=== PATIENT | female | born 1985 | race Caucasian/White ===

== ENCOUNTER 2017-10-06 10:18 | Inpatient (IN) | payer OTHER ==
[~2017-10-06] VITALS: Ht 160 cm; Wt 98.0 kg
[2017-10-06] MEDS ORDERED: PRENATAL TABLE1 EAC2 PO (11:16)
[2017-10-06] MEDS ORDERED: CLARITIN10 M1 PO (11:17)
--- NOTE | 2017-10-06 11:31 | History & Physical Pre-Op ---
General Information and HPI MD Statement: I have seen and personally examined SNOW PINZON and documented this H&P. The patient is a 31 year old F who presented with a patient stated chief complaint of oligohydramnios. Patient's had adequate care she denies rupture of membranes she denies contractions headaches edema visual changes. [] . History of Present Illness: 31-year-old 1 para 0 at 40-6/7 weeks gestation presents with oligohydramnios for induction of labor. Patient was 1 cm 90% in the office vertex -1 for serial induction with Pitocin and misoprostol patient is 9 and discussed risks and benefits of induction with oligohydramnios Allergies/Medications Allergies: Coded Allergies: Penicillins (HIVES 10/06/17) erythromycin base (UPSET STOMACH VOMITING 10/06/17) Home Med list Loratadine (Claritin) 10 MG TABLET 1 TAB PO DAILY ALLERGIES (Reported) Vit No.130/Iron/FA ( Tablet) 27 MG IRON-800 MCG TABLET 1 TAB PO DAILY (Reported) Past History Surgical History Pertinent Surgical History: none Review of Systems Review of Systems: -13 point review of systems Exam & Diagnostic Data Last 24 Hrs of Vital Signs/I&O Thin pleasant white female with glasses HEENT anicteric Adrian lungs clear Heart S1 and S2 Abdomen soft estimated weight 3900 g Pelvic 1 cm 90% rechecks -1 intact Extremities +1 edema negative Homans +1 reflexes Assessment/Plan Assessment/Plan: Assessment is term oligohydramnios plan serial induction with misoprostol and Pitocin IV fluids bed rest continuous monitoring patient may have epidural Stadol As Ranked By This Provider Problem List: 1.
--- NOTE | 2017-10-06 11:56 | PN- Obstetrical ---
Subjective Subjective: no compliants Objective Last 24 Hrs of Vital Signs/I&O as per chart Physical Exam: PE THIN WFIN NAD ABD SOFT EFW 3900 PELVIC 1CM 90 Obstetric Exam Dilation (cm): 1 Effacement (%): 90 Station: 0 Membranes: intact Fluid: unknown Multiple Gestation? No Contractions: IRREGULAR NOT FELT BY PT Assessment/Plan Assessment/Plan ASSESSOLIGO PLAN MISO NUMBER1 OBSEVEFOR
[2017-10-06 12:25] LABS: ABSOLUTE BASOPHIL COUNT 0.1 /CUMM (0.0-0.2); ABSOLUTE EOSINOPHIL COUNT 0.1 /CUMM (0.0-0.7); ABSOLUTE GRANULOCYTE CT 13.9 /CUMM (1.4-6.5); ABSOLUTE LYMPH COUNT 2.4 /CUMM (1.2-3.4); ABSOLUTE MONOCYTE COUNT 1.1 /CUMM (0.10-0.60); BASOPHIL % 0.4 % (0.0-2.0); EOSINOPHIL % 0.7 % (0-5); GRANULOCYTE % 79.1 % (42.2-75.2); HEMATOCRIT 37.7 % (37-47); MEAN CORPUSCULAR HGB 29.8 PG (27.0-31.0); MEAN CORPUSCULAR HGB CONC 33.3 G/DL (33.0-37.0); MEAN CORPUSCULAR VOLUME 89.3 FL (81.0-99.0); MEAN PLATELET VOLUME 8.5 FL (7.4-10.4); PLATELET COUNT 375 /CUMM (130-400); RBC DISTRIBUTION WIDTH 14.1 % (11.5-14.5); RED BLOOD CELL CT 4.21 /CUMM (4.20-5.40); WHITE BLOOD CELL COUNT 17.6 /CUMM (4.8-10.8)
--- NOTE | 2017-10-06 19:07 | PN- OBGYN ---
Surgical Brief Attending Note Brief Attending Note: I assumed care of this patient at 1700. Dr Cleaning signed her out to me. Patient at 40w6d with complicated by oligohydramnios at term. Patient s/p one misoprostol for cervical ripening. Patient reported rupture of membranes. Amnisure positive. Exam 130/80 NAD Alert and oriented x 3 Abdomen soft EFW clinically 3600 grams Gynecoid pelvis /-1/mid/soft. [place] q 2 minutes Catagory 1 tracing GBBS negative 09/11/17 PCN allergy. A/p Para 0 undergoing induction of labor for oligohydramnios now with PROM and GBBS negative. As Para 0 observe for findings of preeclampsia. Discussed same with patient. No need for intervention at present. Labor analgesia and epidural discussed. She will think about same. Nursing reviewed same as well. Induction. No need for additional misoprostol at present and contraction pattern is adequate in my opinion. Once pattern decreases to less than every 5 than would start oxytocin. I reviewed same. GBBS negative and clear. [place] now is 6.
--- NOTE | 2017-10-07 12:00 | PN- Obstetrical ---
Subjective Subjective: No complaints likes peanut ball Objective Last 24 Hrs of Vital Signs/I&O Intake & Output 10/07 1600 10/07 0800 10/07 0000 Intake Total Output Total Balance Patient 216 lb Weight Physical Exam: Well-built white female HEENT anicteric Abdomen soft estimated weight 3900 g Obstetric Exam Dilation (cm): 5 Effacement (%): 90 Station: 0 Membranes: SROM Fluid: bloody show Multiple Gestation? No Contractions: Every 2-3 on external monitor Assessment/Plan Assessment/Plan Assessment is term question of in adequate contractions PLAN IUPC and an epidural for swollen cervix observe closely for
[2017-10-07 20:03] VITALS: BP 139/69
--- NOTE | 2017-10-08 09:34 | PN- Post Delivery/GYN ---
Subjective Subjective: DOING FINE Objective Last 24 Hrs of Vital Signs/I&O Vital Signs Date Time Temp Pulse Resp B/P B/P Pulse O2 O2 Flow FiO2 Mean Ox Delivery Rate 10/07 2025 100.3 10/07 2002 139/69 Physical Exam: PE WELL BUILT WF ABD SOFT DISTENTION FUNDUS FIRM NT EXT +1 EDEMA Assessment/Plan Assessment/Plan ASSESS S/P C/S PLAN CONT PPC
[2017-10-08 09:36] LABS: ABSOLUTE EOSINOPHIL COUNT 0 /CUMM (0.0-0.7)
[2017-10-08 09:53] LABS: ABSOLUTE BASOPHIL COUNT 0.1 /CUMM (0.0-0.2); ABSOLUTE GRANULOCYTE CT 16.9 /CUMM (1.4-6.5); ABSOLUTE LYMPH COUNT 2.6 /CUMM (1.2-3.4); ABSOLUTE MONOCYTE COUNT 1.6 /CUMM (0.10-0.60); BASOPHIL % 0.4 % (0.0-2.0); EOSINOPHIL % 0.2 % (0-5); GRANULOCYTE % 79.9 % (42.2-75.2); MEAN CORPUSCULAR HGB 29.7 PG (27.0-31.0); MEAN CORPUSCULAR HGB CONC 33.1 G/DL (33.0-37.0); MEAN CORPUSCULAR VOLUME 89.7 FL (81.0-99.0); MEAN PLATELET VOLUME 8.4 FL (7.4-10.4); PLATELET COUNT 306 /CUMM (130-400); RBC DISTRIBUTION WIDTH 14.7 % (11.5-14.5); WHITE BLOOD CELL COUNT 21.1 /CUMM (4.8-10.8)
--- NOTE | 2017-10-09 08:24 | Operative Report ---
Operative/Inv Procedure Report Surgery Date: 10/07/17 Name of Procedure: Primary low flap transverse section to Pfannenstiel skin incision Pre-Operative Diagnosis: Arrest of dilatation Post-Operative Diagnosis: Macrosomia same Estimated Blood Loss: 1000 Surgeon/Rn Social Services: Black MOORE,Ada Mccall [facility] Anesthesia: general endotracheal tube, block Operative/Procedure Note Note: Patient was taken the operating room placed supine position after adequate skin testing for anesthesia I the decision was made to perform general anesthesia. After adequate induction general anesthesia via endotracheal tube skin was cut carried down to rectus fascia which was cut in curvilinear fashion I direction peritoneal cavity was entered high into the abdomen the low bladed Leila was placed and lower and incision the visceral peritoneum and uterus was dissected anteriorly patient tolerated this well the rectus sheath was dissected bluntly peritoneum was entered bluntly on since removed field. At the lower abdominal blade was replaced on in the lower uterine segment uterus is nicked extended bluntly as well as sharply on at this point the was delivered over the abdominal wall suction well until clear on the cord was doubly clamped and cut and was handed summer child caregiver waiting delivering to aid in resuscitation on the left uterine artery was bleeding was clamped oversewn times to all the uterus was closed running locking suture 2 of 0 Vicryl interrupted figure-of- eight 30 hemostasis on the uses turned to abdominal cavity found be hemostatic the abdomen was irrigated copious amounts warm sounds are clear peritoneum was reapproximated 0 fascia was reapproximated to continue sutures #1 skin was reapproximated audrey after subcutaneous tissue with the Bovie coagulated patient tolerated that well at the end the case 1000 g misoprostol was placed in the rectum as well as patient had received Hemabate and intravenous Pitocin and intramyometrial Pitocin for uterine contractility urine was clear at the end the case patient was extubated awakened from anesthesia and transferred recovery room awake alert counts correct
[2017-10-10] MEDS ORDERED: PERCOCET 5-3251 EACH PO (09:26)
[2017-10-10] MEDS ORDERED: IBUPROFEN800 M1 PO (09:26)
== END 2017-10-10 10:00 | DRG 765 ==
LOC: GNO 10:18
PROVIDERS: Specialist
PROC: 10D00Z1 Extraction of Products of Conception, Low, Open Approach (ICD-10-PCS; principal; 2017-10-08)
DX: O36.63X0 Maternal care for excessive fetal growth, third trimester, not applicable or unspecified (principal); O41.03X0 Oligohydramnios, third trimester, not applicable or unspecified; O62.1 Secondary uterine inertia; Z37.0 Single live birth; O48.0 Post-term pregnancy; Z3A.40 40 weeks gestation of pregnancy
CPT/HCPCS: GNOP; GNOS; 36415; 81001; 84112; 87086; J0131; J0595; J1200; J1580; J1650; J1885; J2405; J7120; Q2036